=== PATIENT | male | born 1980 | race Caucasian/White ===

== ENCOUNTER 2019-12-20 11:23 | Emergency (ER) | payer MEDICAID ==
[~2019-12-20] VITALS: Ht 180.3 cm; Wt 77.1 kg
[~2019-12-20 11:23] MED LIST: DiphenhydrAMINE 25mg Tab ORAL SCH; Hydrocortisone 1% Oint TOPIC SCH
--- NOTE | 2019-12-20 11:51 | NUR ---
ED Nurse Note: Pt walked [place] ED from streets with c/o rashes and red vesicles over general body for 3 weeks. No discharge. Pt is alert and orientedx4, ambulatory. Pt states rashes are itchy. Pt states he itches them so hard he bleeds occassionally.
[2019-12-20 11:54] VITALS: BP 132/84
[2019-12-20] MEDS ORDERED: HYDROCORTISONE28 G2 TP (12:20)
[2019-12-20] MEDS ORDERED: PREDNISONE20 MG ORAL (12:20)
[2019-12-20] MEDS ORDERED: DIPHENHYDRAMINE25 M1 ORAL (12:20)
--- NOTE | 2019-12-20 12:41 | NUR ---
ER DISCHARGE NOTE: Patient is cleared to be discharged per ERMD, pt is aox4, on room air, with stable vital signs. pt was given dc and prescription instructions, pt was able to verbalize understanding, pt id band removed. pt is able to ambulate with steady gait. pt took all belongings. Pt is homeless, entered into mini cog, homeless log completed. Food and resources provided. Pt notified that 3 presecriptions can be filled in in hosp pharmacy for first 3 days, carmelita Power states she can't fill until 1500 today. Pt notified and states he will return to picker medication at 1500. CN and ERMD aware.
[2019-12-20 12:44] VITALS: BP 130/82
--- NOTE | 2019-12-23 23:02 | Emergency Room Report ---
History of Present Illness General Chief Complaint: Skin Rash/Abscess Source: Patient Present Illness HPI Patient is a 39-year-old male who presents after increased generalized itchiness. Patient had recent onset of symptoms. Reports being homeless. Denies any difficulty breathing or any new hives. Denies prior similar symptoms. Patient states that he has not been having any fever. 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 Patient History Reviewed Nursing Documentation: PMH: Agreed; PSxH: Agreed Review of Systems All Other Systems: negative except mentioned in HPI Physical Exam Vital Signs Date Time Temp Pulse Resp B/P (MAP) Pulse Ox O2 Delivery O2 Flow Rate FiO2 12/20/19 11:42 97.9 99 20 133/88 (103) 98 Room Air General Appearance: well appearing, no apparent distress, alert, GCS 15, non- toxic Head: normocephalic, atraumatic ENT: hearing grossly normal, normal voice Neck: full range of motion, supple Respiratory: lungs clear, normal breath sounds, no respiratory distress, speaking full sentences Cardiovascular #1: normal inspection Gastrointestinal: normal inspection, normal bowel sounds Musculoskeletal: normal inspection, no calf tenderness Neurologic: alert, motor strength/tone normal, conductor/brakeman III-XII nml as tested, oriented x3, normal gait Psychiatric: mood/affect normal Skin: other - Extremity excoriation without evident skin lesions or burrows Medical Decision Making Diagnostic Impression: Primary Impression: Skin rash ER Course Patient presented for skin rash. Differential diagnosis include but was not limited to contact dermatitis, scabies, photosensitivity, neurodermatitis among others. Patient has a benign exam and does not appear to require any imaging or laboratory testing at this time. Patient appears to have some rash likely related to excoriations. Does not appear to have any evidence of pediculosis. Patient was given prescription for medications for symptomatic management. Medications were dispensed per pharmacy. Patient was given a sandwich. Appear stable for outpatient management. The patient is advised to follow up with primary care doctor in 1-2 days. Patient is advised to return if any worsening condition or if any changes in status that are concerning. This report is dictated with [employer] gas station service attendant software which may occasionally lead to discrepancies related to use of this software. Last Vital Signs Date Time Temp Pulse Resp B/P (MAP) Pulse Ox O2 Delivery O2 Flow Rate FiO2 12/20/19 12:44 97.9 70 16 130/82 99 Room Air Status: improved Disposition: HOME, SELF-CARE Condition: Stable Scripts Hydrocortisone 1% Oint (Hydrocortisone 1% Oint*) Y Oint 28 GM TP DAILY, #30 GM Prov: dEuard Reyes MD 12/20/19 Diphenhydramine Hcl* (DIPHENHYDRAMINE HCL*) 25 Mg Capsule 25 MG ORAL Q6H PRN for Itching, #30 CAP 0 Refills Prov: Eduard Reyes MD 12/20/19 Prednisone* (PREDNISONE*) 20 Mg Tablet 40 MG ORAL DAILY, #10 TAB Prov: Eduard Reyes MD 12/20/19 Referrals: NOT CHOSEN IPA/,REFERRING (PCP) Patient Instructions: Rash Additional Instructions: Follow up with your doctor for recheck of rash. Return if worse. Eduard Reyes MD December 23, 2019 23:02
== END 2019-12-20 12:46 | disposition home or self-care (01) ==
LOC: EMR 12:10
DX: R21 Rash and other nonspecific skin eruption (principal); Z88.8 Allergy status to other drugs, medicaments and biological substances
CPT/HCPCS: J7512; Z7502; 99282